=== PATIENT | male | born 1955 | race Caucasian/White ===

== ENCOUNTER → 2016-05-27 | Outpatient (CLI) | payer OTHER ==
[~2016-05-27] MED LIST: ALBUTEROL2.5 MG/3 M IH; ASPIR-LOW81 MG PO; ASPIRIN EC325 MG PO; AVENTYL,PAMELOR50 MG PO; AZITHROMYCIN500 M1 PO; BENTYL10 MG PO; CELEXA20 MG PO; CLOPIDOGREL75 MG PO; COMBIVENT RESPIM4 GM IH; COMBIVENT200 INHALA IH; FAMOTIDINE10 M1 PO; FLEXERIL10 MG PO; FLOVENT DISKUS1 DISK IH; GABAPENTIN400 MG PO; HYDROCODON-ACE1 EAC7 PO; LEVAQUIN500 MG PO; LISINOPRIL-HCT1 EAC3 PO; LISINOPRIL10 MG PO; LOPRESSOR25 MG PO; LORATADINE10 M2 PO; MELOXICAM15 MG PO; METOPROLOL TART25 MG PO; MORPHINE SULFAT15 M1 PO; MORPHINE SULFAT15 MG PO; MORPHINE SULFAT30 M2 PO; NEURONTIN300 MG PO; NICOTINE PATCH1 EAC1 TD; NITROSTAT0.4 MG SL; PLAVIX75 MG PO; PRAVACHOL80 MG PO; PRAVASTATIN SOD20 MG PO; PRAVASTATIN SOD40 MG PO; PRAVASTATIN SOD80 MG PO; PREDNISONE20 MG PO; PRILOSEC40 MG PO; PROMETHAZINE HC25 M1 PO; RANITIDINE HCL150 MG PO; SPIRIVA1 INHALATI IH; TRAZODONE HCL50 MG PO; VENTOLIN HFA18 GM IH; ZANTAC150 MG PO; ZITHROMAX Z-PA250 MG PO; ZOFRAN ODT4 MG PO; ZOFRAN ODT8 MG PO; ZOFRAN4 MG PO
== END | disposition home or self-care (01) ==
LOC: RAD 09:24
DX: Z02.71 Encounter for disability determination (principal); M51.36 Other intervertebral disc degeneration, lumbar region
CPT/HCPCS: 72100; 73560